=== PATIENT | male | born 1985 ===

== ENCOUNTER 2017-10-11 14:13 | Emergency (ER) | payer SELFPAY ==
[2017-10-11 14:16] VITALS: BMI 26.9
--- NOTE | 2017-10-11 15:12 | ED PDOC ---
HPI: Psych/Substance Abuse Time Seen by Provider: 10/11/17 14:28 Chief Complaint (Nursing): Substance Abuse Chief Complaint (Provider): Substance Abuse History Per: Patient History/Exam Limitations: no limitations Onset/Duration Of Symptoms: Mins (xPTA) Current Symptoms Are (Timing): Still Present (dozing off while found) Ingestion Of Substance: Heroin and Xanax Additional Complaint(s): Saroj Bales, a 32 year old male, presents to the ED via EMS for evaluation of possible substance abuse. Police found him dozing off prior to arrival. He admits to using xanax and heroin x1 day ago. He offers no complaints. Past Medical History Vital Signs: Last Vital Signs Temp 98.1 F 10/11/17 14:17 Pulse 110 H 10/11/17 14:17 Resp 20 10/11/17 14:17 BP 132/67 10/11/17 14:17 Pulse Ox 97 10/11/17 14:17 - Medical History PMH: No Chronic Diseases - Surgical History Surgical History: No Surg Hx - Family History Family History: States: Unknown Family Hx - Social History Current smoker - smoking cessation education provided: Yes SMOKER/PACKS PER DAY:: 1 (10+) Alcohol: > 2 Drinks/Day Drugs: Cocaine, Opiates (Heroin), Prescription medications (Xanax) - Allergies Allergies/Adverse Reactions: Allergies Allergy/AdvReac Type Severity Reaction Status Date / Time No Known Allergies Allergy Verified 10/11/17 14:21 Review of Systems Review Of Systems: ROS cannot be obtained secondary to pt's inabilty to answer questions. Physical Exam - Reviewed Nursing Documentation Reviewed: Yes Vital Signs Reviewed: Yes - Physical Exam Appears: Positive for: No Acute Distress Head Exam: Positive for: ATRAUMATIC, NORMAL INSPECTION, NORMOCEPHALIC Eye Exam: Positive for: EOMI, Normal appearance, PERRL Cardiovascular/Chest: Positive for: Regular Rate, Rhythm Respiratory: Positive for: Normal Breath Sounds. Negative for: Respiratory Distress Gastrointestinal/Abdominal: Positive for: Normal Exam Neurologic/Psych: Positive for: Alert, Oriented (x3), Gait (steady and unassisted) - ECG O2 Sat by Pulse Oximetry: 97 (RA) Medical Decision Making Medical Decision Making: Initial Impression: Possible Substance Abuse 1600 On re-evaluation, pt. sleeping comfortably. Easily arousable. Will continue to monitor. 1816 On re-evaluation, pt. in no distress. Still sleeping comfortably. Easily arousable. 1999 On final evaluation, pt. AAOx3. Requesting to be discharged. Vital signs improved. Gait steady unassisted. Scribe Attestation: Documented by Donny Lawrence, acting as a scribe for Enoc Irving PA-C. Provider Scribe Attestation: All medical record entries made by the Scribe were at my direction and personally dictated by me. I have reviewed the chart and agree that the record accurately reflects my personal performance of the history, physical exam, medical decision making, and the department course for this patient. I have also personally directed, reviewed, and agree with the discharge instructions and disposition. Disposition - Clinical Impression Clinical Impression: Substance abuse - Patient ED Disposition Is Patient to be Admitted: No - Disposition Referrals: [facility] [Outside] Disposition: Routine/Home Disposition Time: 20:00 Condition: IMPROVED Additional Instructions: Follow up with [facility] for further evaluation. Return to ED immediately if symptoms worsen. Instructions: Drug Abuse and Drug Addiction (DC) Forms: [employer] (formerly [employer]) (Wolof), [facility] ED School/Work Excuse Print Language: LATVIAN
[2017-10-11 19:05] VITALS: BP 116/66; PULSE 80; RESP 18; TEMP 98.7
[2017-10-12 10:26] VITALS: O2SAT 97
== END 2017-10-11 19:05 | disposition home or self-care (01) ==
LOC: H.ER 14:13
DX: F19.90 Other psychoactive substance use, unspecified, uncomplicated (principal); F17.210 Nicotine dependence, cigarettes, uncomplicated

== ENCOUNTER 2018-03-27 17:25 | Emergency (ER) | payer SELFPAY ==
[2018-03-27 17:32] VITALS: BMI 23.0
[2018-03-27] MEDS ORDERED: Sodium Chloride 0.9% 1,000 ML IV STA (18:17)
--- NOTE | 2018-03-27 18:22 | ED PDOC ---
HPI: Psych/Substance Abuse Time Seen by Provider: 03/27/18 17:47 Chief Complaint (Nursing): Substance Abuse Chief Complaint (Provider): Crisis eval History Per: Patient Additional Complaint(s): patient is a 32 yo male, denies any PMH, presents to ED after being found sleeping on the bathroom floor of a restaurant - admits to using heroin today. Pt is asleep in ED room but arousable to verbal stimuli. Past Medical History Reviewed: Nursing Documentation, Vital Signs Vital Signs: Last Vital Signs Temp 98.3 F 03/27/18 17:31 Pulse 81 03/27/18 17:53 Resp 18 03/27/18 17:53 BP 122/67 03/27/18 17:53 Pulse Ox 97 03/27/18 17:53 - Medical History PMH: No Chronic Diseases - Surgical History Surgical History: No Surg Hx - Family History Family History: States: Unknown Family Hx - Social History Current smoker - smoking cessation education provided: Yes Alcohol: Social Drugs: Cannabis, Opiates, Other - Allergies Allergies/Adverse Reactions: Allergies Allergy/AdvReac Type Severity Reaction Status Date / Time No Known Allergies Allergy Verified 03/27/18 17:32 Review of Systems ROS Statement: Except As Marked, All Systems Reviewed And Found Negative Review Of Systems: ROS cannot be obtained secondary to pt's inabilty to answer questions. Physical Exam - Reviewed Nursing Documentation Reviewed: Yes Vital Signs Reviewed: Yes - Physical Exam Appears: Positive for: Well, Non-toxic, No Acute Distress Head Exam: Positive for: ATRAUMATIC, NORMAL INSPECTION, NORMOCEPHALIC Skin: Positive for: Normal Color, Warm, DRY Eye Exam: Positive for: EOMI, Normal appearance, PERRL ENT: Positive for: Normal ENT Inspection Neck: Positive for: Normal, Painless ROM Cardiovascular/Chest: Positive for: Regular Rate, Rhythm Respiratory: Positive for: CNT, Normal Breath Sounds Gastrointestinal/Abdominal: Positive for: Normal Exam, Soft Back: Positive for: Normal Inspection Extremity: Positive for: Normal ROM Neurologic/Psych: Positive for: Alert, Oriented - Laboratory Results Result Diagrams: 03/27/18 18:27 03/27/18 18:27 - ECG O2 Sat by Pulse Oximetry: 97 Medical Decision Making Medical Decision Making: Diagnostics ordered Pt placed on tire retreader, vitals remain stable Head CT: NAD, as per [facility] On re-eval: BP: 128/88 P: 78 POX:95% on RA Case endorsed to RENETTA Al at 2000 pending clinical sobriety and re-eval Disposition - Clinical Impression Clinical Impression: Substance abuse - Patient ED Disposition Is Patient to be Admitted: Transfer of Care - Disposition Disposition: Transfer of Care Disposition Time: 19:31 Condition: STABLE Forms: [facility] [employer] (Egyptian)
[2018-03-27 18:32] LABS: BASO % 0.6 % (0.0-2.0); EOS # 0.3 K/uL (0.0-0.7); EOS % 5.2 % (0.0-4.0); LYMPH # 2.5 K/uL (1.0-4.3); LYMPH % 38.8 % (20.0-40.0); MEAN CELL VOLUME 84.2 fl (80.0-94.0); MEAN CORPUSCULAR HEMOGLOBIN 28.3 pg (27.0-31.0); MEAN CORPUSCULAR HGB CONC 33.6 g/dL (33.0-37.0); MONO # 0.4 K/uL (0.0-0.8); NEUT # 3.1 K/uL (1.8-7.0); NEUT % 48.4 % (50.0-75.0); NRBC % 0.1 % (0.0-0.0); RBC 4.59 Mil/uL (4.40-5.90); RED CELL DISTRIBUTION WIDTH 14.5 % (11.5-14.5); WHITE BLOOD COUNT 6.3 K/uL (4.8-10.8)
[2018-03-27 18:49] LABS: ALB/GLOB RATIO 1.2 (1.0-2.1); ALBUMIN 4.4 g/dL (3.5-5.0); ALT/SGPT 35 U/L (21-72); AST/SGOT 36 U/L (17-59); BLOOD UREA NITROGEN 24 mg/dl (9-20); CALCIUM 9.4 mg/dL (8.4-10.2); GFR NON-AFRICAN AMERICAN > 60
[2018-03-27 19:32] VITALS: O2SAT 97
--- NOTE | 2018-03-27 20:44 | ED PDOC ---
- Laboratory Results Result Diagrams: 03/27/18 18:27 03/27/18 18:27 - ECG O2 Sat by Pulse Oximetry: 97 - Progress ED Course And Treament: Case endorsed to specifications writer from Nelsy JACKSON pending sobriety 20:00 Patient sleeping; no distress 21:30 Patient sleeping; no distress 23:00 Patient awake, alert, oriented x3. Ambulating steady gait. Tolerated PO Patient requires no further intervention in the ED and is stable for discharge at this time Disposition - Clinical Impression Clinical Impression: Substance abuse - POA Present On Arrival: None - Disposition Disposition: Routine/Home Disposition Time: 23:09 Condition: IMPROVED Instructions: Drug Abuse and Drug Addiction (DC)
[2018-03-27 23:13] VITALS: BP 126/78; PULSE 70; RESP 13; TEMP 97.8
--- NOTE | 2018-03-28 08:29 | CT ---
Date of service: 03/27/2018 PROCEDURE: CT HEAD WITHOUT CONTRAST. HISTORY: substance abuse, fewll COMPARISON: None available. TECHNIQUE: Axial computed tomography images were obtained through the head/brain without intravenous contrast. Radiation dose: Total exam DLP = 1150.93 mGy-cm. This CT exam was performed using one or more of the following dose reduction techniques: Automated exposure control, adjustment of the mA and/or kV according to patient size, and/or use of iterative reconstruction technique. FINDINGS: HEMORRHAGE: No intracranial hemorrhage. BRAIN: No mass effect or edema. No atrophy or chronic microvascular ischemic changes. VENTRICLES: Unremarkable. No hydrocephalus. CALVARIUM: Unremarkable. PARANASAL SINUSES: Unremarkable as visualized. No significant inflammatory changes. MASTOID AIR CELLS: Unremarkable as visualized. No inflammatory changes. OTHER FINDINGS: None. IMPRESSION: Normal CT of the Head.
--- NOTE | 2018-03-28 19:02 | CARD ---
APPROVED REPORT Date of service: 03/27/2018 EKG Measurement Heart [id number] <Conclusion> Normal sinus rhythm Possible septal infarct, age undetermined Early repolarization Borderline ECG
== END 2018-03-27 23:14 | disposition home or self-care (01) ==
LOC: H.ER 17:25
DX: F19.10 Other psychoactive substance abuse, uncomplicated (principal)
CPT/HCPCS: 70450; 80053; 82550; 85025; 93005; 96360; 99284; G0480; J7030

== ENCOUNTER 2018-05-02 22:39 | Emergency (ER) | payer SELFPAY ==
[2018-05-02 22:40] VITALS: BMI 23.0
[2018-05-02 22:52] VITALS: RESP 18; TEMP 97.2
--- NOTE | 2018-05-03 01:11 | ED PDOC ---
HPI: Psych/Substance Abuse Time Seen by Provider: 05/02/18 22:57 Chief Complaint (Nursing): Substance Abuse Chief Complaint (Provider): Substance Abuse History Per: Patient History/Exam Limitations: no limitations Additional Complaint(s): 33 y/o male with history of heroin abuse presents to the ED for evaluation of substance abuse. Patient's mother found him snorting Xanax in the bathroom so she called the police. Patient admits to also sniffing heroin today. Patient denies alcohol abuse. He states he just feels tired and wants to go home. Denies homicidal or suicidal ideation. Patient reports he was just sniffing the Xanax because he wanted to go to sleep because of insomnia. Past Medical History Reviewed: Historical Data, Nursing Documentation, Vital Signs Vital Signs: Last Vital Signs Temp 97.2 F L 05/02/18 22:45 Pulse 92 H 05/02/18 22:45 Resp 18 05/02/18 22:45 BP 144/86 05/02/18 22:45 Pulse Ox 99 05/02/18 22:45 - Medical History Other PMH: Heroin Abuse - Family History Family History: States: Unknown Family Hx - Social History Alcohol: None Drugs: Opiates (Heroin), Prescription medications (Xanax) - Allergies Allergies/Adverse Reactions: Allergies Allergy/AdvReac Type Severity Reaction Status Date / Time No Known Allergies Allergy Verified 05/02/18 22:45 Review of Systems ROS Statement: Except As Marked, All Systems Reviewed And Found Negative Psych: Negative for: Suicidal ideation Physical Exam - Reviewed Nursing Documentation Reviewed: Yes Vital Signs Reviewed: Yes - Physical Exam Appears: Positive for: No Acute Distress (drowsy) Head Exam: Positive for: ATRAUMATIC, NORMOCEPHALIC Skin: Positive for: Normal Color, Warm, Dry Eye Exam: Positive for: Normal appearance, EOMI, PERRL, Other (2 mm pupils bilaterally) Neck: Positive for: Normal, Painless ROM Cardiovascular/Chest: Positive for: Regular Rate, Rhythm. Negative for: Murmur Respiratory: Positive for: Normal Breath Sounds. Negative for: Respiratory Distress Gastrointestinal/Abdominal: Positive for: Normal Exam, Soft. Negative for: Tenderness Extremity: Positive for: Normal ROM. Negative for: Pedal Edema, Deformity Neurologic/Psych: Positive for: Alert, Oriented (x3), Gait (steady). Negative for: Motor/Sensory Deficits - ECG O2 Sat by Pulse Oximetry: 99 (RA) Pulse Ox Interpretation: Normal Medical Decision Making Medical Decision Making: Time: 22:57 Initial Impression: 33 y/o with history of drug abuse presents with intentional drug use. Patient is arousable to voice does no require Narcan. Will observe till clinically sober. Initial Plan: --Clinical sobriety --Reeval 434AM --Awake, alert, steady gait --Will discharge Scribe Attestation: Documented by Donny Lawrence acting as a scribe for Guillaume Morrison MD. Provider Scribe Attestation: All medical record entries made by the Scribe were at my direction and personally dictated by me. I have reviewed the chart and agree that the record accurately reflects my personal performance of the history, physical exam, medical decision making, and the department course for this patient. I have also personally directed, reviewed, and agree with the discharge instructions and disposition. Disposition - Clinical Impression Clinical Impression: Substance abuse - Disposition Disposition: Routine/Home Disposition Time: 04:34 Condition: STABLE Instructions: Prescription Drug Abuse (DC) Forms: [employer] (Ecuadorean)
[2018-05-03 07:47] VITALS: BP 124/75; PULSE 67; O2SAT 97
== END 2018-05-03 05:00 | disposition home or self-care (01) ==
LOC: H.ER 22:39
DX: F19.10 Other psychoactive substance abuse, uncomplicated (principal)